=== PATIENT | male | born 1945 | race Caucasian/White ===

== ENCOUNTER 2018-05-02 15:27 | Emergency (ER) | payer MEDICARE, BC ==
[2018-05-02] MEDS: SODIUM CHLORIDE 0.9% FLUSH 10 ML SOL IV PRN (15:45)
[2018-05-02 15:46] VITALS: TEMP 98.5
[2018-05-02] MEDS ORDERED: ALTEPLASE, RECOMBINANT 50 MG PDS IV ONE (15:55)
[2018-05-02 15:58] LABS: CALCIUM 8.8 mg/dl (8.5-10.1); CREATININE 1.25 mg/dl (0.80-1.30)
[2018-05-02 16:01] LABS: INR 0.94 (0.86-1.12)
[2018-05-02] MEDS ORDERED: ASPIRIN 81 MG CHEWABLE CTB ONE (16:02)
[2018-05-02 16:03] LABS: HEMATOCRIT 42 % (39-53); HEMOGLOBIN 14.4 gm/dl (13.5-17.7); MEAN CORPUSCULAR HEMOGLOBIN 29.4 pg (27.0-32.0); MEAN CORPUSCULAR VOLUME 87 fL (80-100)
[2018-05-02] MEDS: ASPIRIN 81 MG CHEWABLE CTB PO ONE (16:03)
[2018-05-02 16:26] VITALS: BP 181/75; PULSE 99; RESP 26; O2SAT 91
[2018-05-02 16:30] LABS: BAND NEUTROPHILS % (MANUAL) 1 %; BASOPHILS % (MANUAL) 1 % (0-3); EOSINOPHILS % (MANUAL) 0 % (0-9); LYMPHOCYTES % (MANUAL) 28 % (10-50); MONOCYTES % (MANUAL) 5 % (0-12); NEUTROPHILS % (MANUAL) 65 % (37-80)
[2018-05-02 16:31] LABS: ANISOCYTOSIS SLIGHT; OVALOCYTES PRESENT; POIKILOCYTOSIS SLIGHT
== END 2018-05-02 16:09 | disposition short-term general hospital (02) | DRG 72 ==
LOC: ED 15:27
DX: I67.9 Cerebrovascular disease, unspecified (principal); R53.1 Weakness; R29.704 NIHSS score 4; I10 Essential (primary) hypertension; R40.2362 Coma scale, best motor response, obeys commands, at arrival to emergency department; R40.2142 Coma scale, eyes open, spontaneous, at arrival to emergency department; R40.2252 Coma scale, best verbal response, oriented, at arrival to emergency department; R29.702 NIHSS score 2
CPT/HCPCS: 70450; 80048; 85007; 85027; 85610; 85730; 93005; 99291; J2997

== ENCOUNTER 2018-05-29 11:43 | Emergency (ER) | payer MEDICARE, BC ==
[2018-05-29] MEDS ORDERED: SODIUM CHLORIDE 0.9% FLUSH 10 ML SOL IV PRN (11:56)
[2018-05-29 12:08] VITALS: TEMP 99.6
[2018-05-29 12:11] LABS: CALCIUM 8.5 mg/dl (8.5-10.1); CARBON DIOXIDE 28.8 mEq/L (21-32); CREATININE 0.96 mg/dl (0.80-1.30); POTASSIUM 4.1 mMol/L (3.5-5.1)
[2018-05-29 12:16] LABS: INR 0.99 (0.86-1.12)
[2018-05-29 12:22] LABS: BASOPHILS % (AUTO) 1 % (0-3); EOSINOPHILS % (AUTO) 1 % (0-9); HEMATOCRIT 40 % (39-53); HEMOGLOBIN 13.1 gm/dl (13.5-17.7); LYMPHOCYTES % (AUTO) 17.24 % (10-50); MEAN CORPUSCULAR HEMOGLOBIN 29.4 pg (27.0-32.0); MEAN CORPUSCULAR HGB CONC 32.9 gm/dl (32.0-36.0); MEAN CORPUSCULAR VOLUME 89 fL (80-100); MONOCYTES % (AUTO) 7.5 % (0-12); NEUTROPHILS % (AUTO) 73.7 % (37-80)
[2018-05-29 17:34] VITALS: BP 180/89; PULSE 72; RESP 22; O2SAT 99
== END 2018-05-29 17:52 | disposition short-term general hospital (02) | DRG 57 ==
LOC: ED 11:43
DX: G81.91 Hemiplegia, unspecified affecting right dominant side (principal); Z98.890 Other specified postprocedural states; Z51.89 Encounter for other specified aftercare; R53.1 Weakness
CPT/HCPCS: 70450; 70544; 70549; 70551; 80048; 82962; 85025; 85610; 85730; 93005; 99284; 99291; A9585

== ENCOUNTER 2018-06-19 11:32 | Inpatient (IN) | payer MEDICARE, BC ==
[2018-06-19] MEDS ORDERED: PHARMACOKINETICS 1 MISC PRN (14:05)
[2018-06-19] MEDS ORDERED: OXYCODONE HYDROCHLORIDE 5 MG TAB PO PRN (14:59)
[2018-06-19] MEDS ORDERED: QUETIAPINE FUMARATE 25 MG TAB PO PRN (14:59)
[2018-06-19] MEDS ORDERED: PIPERACILLIN/TAZOBACT 3.375 GM PDS IV ONE ×3 (16:28→21:19)
[2018-06-19] MEDS ORDERED: SODIUM CHLORIDE 0.9% 100 ML 100 ML IV ONE ×3 (16:29→21:19)
[2018-06-19] MEDS: PIPERACILLIN/TAZOBACT 3.375 GM 3.375 GM in SODIUM CHLORIDE 0.9% 100 ML 100 ML IV SCH ×2 (16:47→21:42)
[2018-06-19] MEDS: SODIUM CHLORIDE 0.9% FLUSH 10 ML SOL IV SCH ×2 (16:47→22:41)
[2018-06-19] MEDS: ACETAMINOPHEN 500 MG 500 MG TAB PO PRN (18:59)
[2018-06-19] MEDS ORDERED: SODIUM CHLORIDE 0.9% 250 ML 250 ML IV ONE (21:19)
[2018-06-19] MEDS ORDERED: VANCOMYCIN HYDROCHLORIDE 500 MG PDS IV ONE (21:19)
[2018-06-19] MEDS: LEVETIRACETAM 250 MG TAB PO SCH (21:49)
[2018-06-19] MEDS: MELATONIN 3 MG TAB PO SCH (21:50)
[2018-06-19] MEDS: GABAPENTIN 100 MG CAP PO SCH (21:50)
[2018-06-19] MEDS ORDERED: VANCOMYCIN HCL 500 MG PDS 1,250 MG in SODIUM CHLORIDE 0.9% 250 ML 250 ML IV ONE (22:00)
[2018-06-19] MEDS: VANCOMYCIN HCL 500 MG PDS 1,250 MG in SODIUM CHLORIDE 0.9% 250 ML 250 ML IV SCH (22:40)
[2018-06-20] MEDS: SODIUM CHLORIDE 0.9% FLUSH 10 ML SOL IV SCH ×3 (00:26→18:30)
[2018-06-20] MEDS: ACETAMINOPHEN 500 MG 500 MG TAB PO PRN (00:34)
[2018-06-20] MEDS ORDERED: PIPERACILLIN/TAZOBACT 3.375 GM PDS IV ONE ×4 (02:50→20:31)
[2018-06-20] MEDS ORDERED: SODIUM CHLORIDE 0.9% 100 ML 100 ML IV ONE ×4 (02:50→20:31)
[2018-06-20] MEDS: SODIUM CHLORIDE 0.9% FLUSH 10 ML SOL IV PRN ×4 (03:45→21:04)
[2018-06-20] MEDS: PIPERACILLIN/TAZOBACT 3.375 GM 3.375 GM in SODIUM CHLORIDE 0.9% 100 ML 100 ML IV SCH ×4 (03:45→21:02)
[2018-06-20] MEDS: TAMSULOSIN HYDROCHLORIDE 0.4 MG CAP PO SCH (08:52)
[2018-06-20] MEDS: ATORVASTATIN 10 MG TAB PO SCH (08:53)
[2018-06-20] MEDS: GABAPENTIN 100 MG CAP PO SCH ×3 (08:53→21:08)
[2018-06-20] MEDS: LISINOPRIL 5 MG TAB PO SCH (08:54)
[2018-06-20] MEDS ORDERED: MULTIVITAMIN2 1 EA TAB PO SCH (09:00)
[2018-06-20] MEDS: LEVETIRACETAM 250 MG TAB PO SCH ×2 (09:01→21:08)
[2018-06-20] MEDS ORDERED: VANCOMYCIN HYDROCHLORIDE 500 MG PDS IV ONE ×2 (09:27→21:14)
[2018-06-20] MEDS ORDERED: SODIUM CHLORIDE 0.9% 250 ML 250 ML IV ONE ×2 (09:27→21:15)
[2018-06-20] MEDS: VANCOMYCIN HCL 500 MG PDS 1,250 MG in SODIUM CHLORIDE 0.9% 250 ML 250 ML IV SCH ×2 (10:23→21:58)
[2018-06-20] MEDS: MELATONIN 3 MG TAB PO SCH (21:08)
[2018-06-20] MEDS: ASCORBIC ACID/COPPER/LUTEIN/ 1 CAP SGL PO SCH (21:09)
[2018-06-21] MEDS: SODIUM CHLORIDE 0.9% FLUSH 10 ML SOL IV SCH ×4 (00:35→23:30)
[2018-06-21] MEDS ORDERED: PIPERACILLIN/TAZOBACT 3.375 GM PDS IV ONE ×4 (03:19→21:25)
[2018-06-21] MEDS ORDERED: SODIUM CHLORIDE 0.9% 100 ML 100 ML IV ONE ×2 (03:19→07:55)
[2018-06-21] MEDS: PIPERACILLIN/TAZOBACT 3.375 GM 3.375 GM in SODIUM CHLORIDE 0.9% 100 ML 100 ML IV SCH ×4 (03:38→21:47)
[2018-06-21] MEDS: SODIUM CHLORIDE 0.9% FLUSH 10 ML SOL IV PRN ×3 (03:39→22:29)
[2018-06-21] MEDS: LISINOPRIL 5 MG TAB PO SCH (08:14)
[2018-06-21] MEDS: TAMSULOSIN HYDROCHLORIDE 0.4 MG CAP PO SCH (08:15)
[2018-06-21] MEDS: ATORVASTATIN 10 MG TAB PO SCH (08:15)
[2018-06-21] MEDS: GABAPENTIN 100 MG CAP PO SCH ×3 (08:15→21:58)
[2018-06-21] MEDS: ASCORBIC ACID/COPPER/LUTEIN/ 1 CAP SGL PO SCH ×2 (08:34→21:52)
[2018-06-21] MEDS: LEVETIRACETAM 250 MG TAB PO SCH ×2 (08:40→21:51)
[2018-06-21] MEDS: VANCOMYCIN HCL 500 MG PDS 1,250 MG in SODIUM CHLORIDE 0.9% 250 ML 250 ML IV SCH (10:46)
[2018-06-21] MEDS ORDERED: SODIUM CHLORIDE 0.9% 250 ML 250 ML IV ONE (21:14)
[2018-06-21] MEDS ORDERED: VANCOMYCIN HYDROCHLORIDE 500 MG PDS IV ONE (21:14)
[2018-06-21] MEDS: MELATONIN 3 MG TAB PO SCH (21:51)
[2018-06-21] MEDS: ACETAMINOPHEN 500 MG 500 MG TAB PO PRN (21:51)
[2018-06-21] MEDS: VANCOMYCIN HCL 500 MG PDS 1,000 MG in SODIUM CHLORIDE 0.9% 250 ML 250 ML IV SCH (22:28)
[2018-06-22] MEDS ORDERED: PIPERACILLIN/TAZOBACT 3.375 GM PDS IV ONE ×4 (02:30→19:50)
[2018-06-22] MEDS: PIPERACILLIN/TAZOBACT 3.375 GM 3.375 GM in SODIUM CHLORIDE 0.9% 100 ML 100 ML IV SCH ×4 (02:57→21:09)
[2018-06-22] MEDS: ACETAMINOPHEN 500 MG 500 MG TAB PO PRN ×2 (03:04→21:16)
[2018-06-22 07:16] LABS: CREATININE 1.21 mg/dl (0.80-1.30); CRP INFLAMMATORY 1.37 mg/dl (0.00-0.33)
[2018-06-22 07:20] LABS: BASOPHILS % (AUTO) 1 % (0-3); EOSINOPHILS % (AUTO) 6 % (0-9); HEMATOCRIT 34 % (39-53); HEMOGLOBIN 10.7 gm/dl (13.5-17.7); LYMPHOCYTES % (AUTO) 19.5 % (10-50); MEAN CORPUSCULAR HEMOGLOBIN 28.3 pg (27.0-32.0); MEAN CORPUSCULAR VOLUME 88 fL (80-100); MONOCYTES % (AUTO) 7.4 % (0-12); NEUTROPHILS % (AUTO) 65.8 % (37-80)
[2018-06-22] MEDS: SODIUM CHLORIDE 0.9% FLUSH 10 ML SOL IV SCH ×3 (09:43→23:40)
[2018-06-22] MEDS: ATORVASTATIN 10 MG TAB PO SCH (09:43)
[2018-06-22] MEDS: LISINOPRIL 5 MG TAB PO SCH (09:43)
[2018-06-22] MEDS: TAMSULOSIN HYDROCHLORIDE 0.4 MG CAP PO SCH (09:43)
[2018-06-22] MEDS: LEVETIRACETAM 250 MG TAB PO SCH ×2 (09:46→21:05)
[2018-06-22] MEDS: GABAPENTIN 100 MG CAP PO SCH ×3 (09:46→21:05)
[2018-06-22] MEDS: ASCORBIC ACID/COPPER/LUTEIN/ 1 CAP SGL PO SCH ×2 (09:47→21:05)
[2018-06-22] MEDS ORDERED: SODIUM CHLORIDE 0.9% 250 ML 250 ML IV ONE ×3 (10:43→19:50)
[2018-06-22] MEDS ORDERED: VANCOMYCIN HYDROCHLORIDE 500 MG PDS IV ONE ×2 (10:43→19:50)
[2018-06-22] MEDS: VANCOMYCIN HCL 500 MG PDS 1,000 MG in SODIUM CHLORIDE 0.9% 250 ML 250 ML IV SCH ×2 (10:56→21:50)
[2018-06-22] MEDS ORDERED: SODIUM CHLORIDE 0.9% 100 ML 100 ML IV ONE ×2 (15:42→19:50)
[2018-06-22] MEDS: MELATONIN 3 MG TAB PO SCH (21:05)
[2018-06-23] MEDS ORDERED: PIPERACILLIN/TAZOBACT 3.375 GM PDS IV ONE ×5 (01:07→23:57)
[2018-06-23] MEDS ORDERED: SODIUM CHLORIDE 0.9% 100 ML 100 ML IV ONE ×5 (01:08→23:57)
[2018-06-23] MEDS: PIPERACILLIN/TAZOBACT 3.375 GM 3.375 GM in SODIUM CHLORIDE 0.9% 100 ML 100 ML IV SCH ×4 (02:52→20:16)
[2018-06-23] MEDS: SODIUM CHLORIDE 0.9% FLUSH 10 ML SOL IV SCH ×6 (02:52→23:37)
[2018-06-23] MEDS: SODIUM CHLORIDE 0.9% FLUSH 10 ML SOL IV PRN ×2 (08:26→09:11)
[2018-06-23] MEDS: LEVETIRACETAM 250 MG TAB PO SCH ×2 (08:33→20:14)
[2018-06-23] MEDS: TAMSULOSIN HYDROCHLORIDE 0.4 MG CAP PO SCH (08:33)
[2018-06-23] MEDS: ATORVASTATIN 10 MG TAB PO SCH (08:34)
[2018-06-23] MEDS: ASCORBIC ACID/COPPER/LUTEIN/ 1 CAP SGL PO SCH ×2 (08:34→20:16)
[2018-06-23] MEDS: GABAPENTIN 100 MG CAP PO SCH ×3 (08:34→20:15)
[2018-06-23] MEDS: LISINOPRIL 5 MG TAB PO SCH (08:35)
[2018-06-23] MEDS: VANCOMYCIN HCL 500 MG PDS 1,000 MG in SODIUM CHLORIDE 0.9% 250 ML 250 ML IV SCH ×2 (10:01→22:18)
[2018-06-23] MEDS: HYDRALAZINE HYDROCHLORIDE 10 MG TAB PO PRN ×2 (11:54→19:29)
[2018-06-23] MEDS ORDERED: LISINOPRIL 5 MG TAB PO ONE (14:40)
[2018-06-23] MEDS ORDERED: VANCOMYCIN HYDROCHLORIDE 500 MG PDS IV ONE ×2 (18:40→18:41)
[2018-06-23] MEDS ORDERED: SODIUM CHLORIDE 0.9% 250 ML 250 ML IV ONE (18:43)
[2018-06-23] MEDS: MELATONIN 3 MG TAB PO SCH (20:15)
[2018-06-23] MEDS: ACETAMINOPHEN 500 MG 500 MG TAB PO PRN (20:17)
[2018-06-24] MEDS: SODIUM CHLORIDE 0.9% FLUSH 10 ML SOL IV SCH ×5 (03:20→23:15)
[2018-06-24] MEDS: PIPERACILLIN/TAZOBACT 3.375 GM 3.375 GM in SODIUM CHLORIDE 0.9% 100 ML 100 ML IV SCH ×4 (03:20→20:55)
[2018-06-24] MEDS ORDERED: PIPERACILLIN/TAZOBACT 3.375 GM PDS IV ONE ×3 (09:37→20:36)
[2018-06-24] MEDS ORDERED: SODIUM CHLORIDE 0.9% 100 ML 100 ML IV ONE ×3 (09:37→20:36)
[2018-06-24] MEDS: LISINOPRIL 20 MG TAB PO SCH (09:42)
[2018-06-24] MEDS: ATORVASTATIN 10 MG TAB PO SCH (09:42)
[2018-06-24] MEDS: TAMSULOSIN HYDROCHLORIDE 0.4 MG CAP PO SCH (09:42)
[2018-06-24] MEDS: GABAPENTIN 100 MG CAP PO SCH ×3 (09:42→20:43)
[2018-06-24] MEDS: ASCORBIC ACID/COPPER/LUTEIN/ 1 CAP SGL PO SCH ×2 (09:43→20:43)
[2018-06-24] MEDS: HYDRALAZINE HYDROCHLORIDE 10 MG TAB PO PRN ×2 (09:47→21:01)
[2018-06-24] MEDS: LEVETIRACETAM 250 MG TAB PO SCH ×2 (09:47→20:43)
[2018-06-24] MEDS ORDERED: VANCOMYCIN HYDROCHLORIDE 500 MG PDS IV ONE ×2 (10:35→21:23)
[2018-06-24] MEDS ORDERED: SODIUM CHLORIDE 0.9% 250 ML 250 ML IV ONE ×2 (10:35→21:23)
[2018-06-24] MEDS: VANCOMYCIN HCL 500 MG PDS 1,000 MG in SODIUM CHLORIDE 0.9% 250 ML 250 ML IV SCH ×2 (10:50→21:38)
[2018-06-24] MEDS: MELATONIN 3 MG TAB PO SCH (20:43)
[2018-06-24] MEDS: ACETAMINOPHEN 500 MG 500 MG TAB PO PRN (20:46)
[2018-06-25] MEDS: ACETAMINOPHEN 500 MG 500 MG TAB PO PRN ×2 (02:02→22:05)
[2018-06-25] MEDS ORDERED: PIPERACILLIN/TAZOBACT 3.375 GM PDS IV ONE ×4 (02:31→21:47)
[2018-06-25] MEDS ORDERED: SODIUM CHLORIDE 0.9% 100 ML 100 ML IV ONE ×4 (02:32→21:47)
[2018-06-25] MEDS: PIPERACILLIN/TAZOBACT 3.375 GM 3.375 GM in SODIUM CHLORIDE 0.9% 100 ML 100 ML IV SCH ×4 (03:04→21:58)
[2018-06-25] MEDS: SODIUM CHLORIDE 0.9% FLUSH 10 ML SOL IV SCH ×5 (03:05→16:36)
[2018-06-25] MEDS: LISINOPRIL 20 MG TAB PO SCH (08:52)
[2018-06-25] MEDS: ASCORBIC ACID/COPPER/LUTEIN/ 1 CAP SGL PO SCH ×2 (08:53→21:59)
[2018-06-25] MEDS: GABAPENTIN 100 MG CAP PO SCH ×3 (08:54→21:59)
[2018-06-25] MEDS: LEVETIRACETAM 250 MG TAB PO SCH ×2 (08:54→21:58)
[2018-06-25] MEDS: ATORVASTATIN 10 MG TAB PO SCH (08:55)
[2018-06-25] MEDS: TAMSULOSIN HYDROCHLORIDE 0.4 MG CAP PO SCH (08:55)
[2018-06-25] MEDS: HYDRALAZINE HYDROCHLORIDE 10 MG TAB PO SCH ×2 (09:00→21:59)
[2018-06-25 09:20] LABS: BASOPHILS % (AUTO) 1 % (0-3); EOSINOPHILS % (AUTO) 7 % (0-9); HEMATOCRIT 35 % (39-53); HEMOGLOBIN 11.4 gm/dl (13.5-17.7); LYMPHOCYTES % (AUTO) 13.2 % (10-50); MEAN CORPUSCULAR HEMOGLOBIN 28.7 pg (27.0-32.0); MEAN CORPUSCULAR HGB CONC 32.6 gm/dl (32.0-36.0); MEAN CORPUSCULAR VOLUME 88 fL (80-100); MONOCYTES % (AUTO) 5.7 % (0-12); NEUTROPHILS % (AUTO) 72.8 % (37-80)
[2018-06-25 09:31] LABS: CALCIUM 8.6 mg/dl (8.5-10.1); CARBON DIOXIDE 27.4 mEq/L (21-32); CREATININE 1.25 mg/dl (0.80-1.30); POTASSIUM 4.1 mMol/L (3.5-5.1)
[2018-06-25] MEDS ORDERED: VANCOMYCIN HYDROCHLORIDE 500 MG PDS IV ONE ×2 (09:55→22:24)
[2018-06-25] MEDS ORDERED: SODIUM CHLORIDE 0.9% 250 ML 250 ML IV ONE ×2 (09:55→22:24)
[2018-06-25] MEDS: VANCOMYCIN HCL 500 MG PDS 1,000 MG in SODIUM CHLORIDE 0.9% 250 ML 250 ML IV SCH ×2 (09:58→22:37)
[2018-06-25] MEDS: HYDRALAZINE HYDROCHLORIDE 10 MG TAB PO PRN (11:12)
[2018-06-25] MEDS: MELATONIN 3 MG TAB PO SCH (21:58)
[2018-06-26] MEDS: SODIUM CHLORIDE 0.9% FLUSH 10 ML SOL IV SCH ×3 (00:30→15:00)
[2018-06-26] MEDS ORDERED: PIPERACILLIN/TAZOBACT 3.375 GM PDS IV ONE ×4 (02:42→21:45)
[2018-06-26] MEDS ORDERED: SODIUM CHLORIDE 0.9% 100 ML 100 ML IV ONE ×4 (02:42→21:45)
[2018-06-26] MEDS: PIPERACILLIN/TAZOBACT 3.375 GM 3.375 GM in SODIUM CHLORIDE 0.9% 100 ML 100 ML IV SCH ×4 (03:29→22:05)
[2018-06-26] MEDS: HYDRALAZINE HYDROCHLORIDE 10 MG TAB PO PRN ×2 (04:16→15:53)
[2018-06-26] MEDS: GABAPENTIN 100 MG CAP PO SCH ×3 (08:38→22:37)
[2018-06-26] MEDS: TAMSULOSIN HYDROCHLORIDE 0.4 MG CAP PO SCH (08:38)
[2018-06-26] MEDS: LEVETIRACETAM 250 MG TAB PO SCH ×2 (08:38→22:27)
[2018-06-26] MEDS: LISINOPRIL 20 MG TAB PO SCH (08:39)
[2018-06-26] MEDS: ASCORBIC ACID/COPPER/LUTEIN/ 1 CAP SGL PO SCH ×2 (08:39→22:38)
[2018-06-26] MEDS: ATORVASTATIN 10 MG TAB PO SCH (08:39)
[2018-06-26] MEDS ORDERED: SODIUM CHLORIDE 0.9% 250 ML 250 ML IV ONE ×2 (09:10→21:46)
[2018-06-26] MEDS ORDERED: VANCOMYCIN HYDROCHLORIDE 500 MG PDS IV ONE ×2 (09:10→21:46)
[2018-06-26] MEDS: SODIUM CHLORIDE 0.9% FLUSH 10 ML SOL IV PRN ×3 (09:21→15:38)
[2018-06-26] MEDS: VANCOMYCIN HCL 500 MG PDS 1,000 MG in SODIUM CHLORIDE 0.9% 250 ML 250 ML IV SCH ×2 (09:59→23:07)
[2018-06-26] MEDS: HYDRALAZINE HYDROCHLORIDE 10 MG TAB PO SCH ×2 (10:02→22:29)
[2018-06-26] MEDS ORDERED: HYDROCHLOROTHIAZIDE 25 MG TAB PO ONE (16:06)
[2018-06-26] MEDS: MELATONIN 3 MG TAB PO SCH (22:33)
[2018-06-26] MEDS: ACETAMINOPHEN 500 MG 500 MG TAB PO PRN (22:41)
[2018-06-27] MEDS ORDERED: PIPERACILLIN/TAZOBACT 3.375 GM PDS IV ONE ×4 (03:13→20:51)
[2018-06-27] MEDS ORDERED: SODIUM CHLORIDE 0.9% 100 ML 100 ML IV ONE ×4 (03:14→20:51)
[2018-06-27] MEDS: PIPERACILLIN/TAZOBACT 3.375 GM 3.375 GM in SODIUM CHLORIDE 0.9% 100 ML 100 ML IV SCH ×4 (03:44→20:59)
[2018-06-27] MEDS: SODIUM CHLORIDE 0.9% FLUSH 10 ML SOL IV SCH ×6 (03:53→23:54)
[2018-06-27] MEDS: LEVETIRACETAM 250 MG TAB PO SCH ×2 (08:47→20:59)
[2018-06-27] MEDS: GABAPENTIN 100 MG CAP PO SCH ×3 (08:48→21:01)
[2018-06-27] MEDS: TAMSULOSIN HYDROCHLORIDE 0.4 MG CAP PO SCH (08:49)
[2018-06-27] MEDS: ATORVASTATIN 10 MG TAB PO SCH (08:49)
[2018-06-27] MEDS: LISINOPRIL 20 MG TAB PO SCH (08:50)
[2018-06-27] MEDS: ASCORBIC ACID/COPPER/LUTEIN/ 1 CAP SGL PO SCH ×2 (08:50→21:02)
[2018-06-27] MEDS: HYDRALAZINE HYDROCHLORIDE 10 MG TAB PO SCH ×2 (08:51→21:04)
[2018-06-27] MEDS: HYDROCHLOROTHIAZIDE 25 MG TAB PO SCH (08:56)
[2018-06-27] MEDS ORDERED: VANCOMYCIN HYDROCHLORIDE 500 MG PDS IV ONE ×3 (10:20→22:15)
[2018-06-27] MEDS ORDERED: SODIUM CHLORIDE 0.9% 250 ML 250 ML IV ONE ×4 (10:20→22:15)
[2018-06-27] MEDS: VANCOMYCIN HCL 500 MG PDS 1,000 MG in SODIUM CHLORIDE 0.9% 250 ML 250 ML IV SCH ×2 (10:21→22:20)
[2018-06-27] MEDS: SODIUM CHLORIDE 0.9% FLUSH 10 ML SOL IV PRN (15:22)
[2018-06-27] MEDS: MELATONIN 3 MG TAB PO SCH (21:00)
[2018-06-27] MEDS: ACETAMINOPHEN 500 MG 500 MG TAB PO PRN (21:10)
[2018-06-28] MEDS ORDERED: PIPERACILLIN/TAZOBACT 3.375 GM PDS IV ONE ×2 (02:45→20:20)
[2018-06-28] MEDS ORDERED: SODIUM CHLORIDE 0.9% 100 ML 100 ML IV ONE ×2 (02:46→20:20)
[2018-06-28] MEDS: PIPERACILLIN/TAZOBACT 3.375 GM 3.375 GM in SODIUM CHLORIDE 0.9% 100 ML 100 ML IV SCH ×4 (03:20→20:58)
[2018-06-28] MEDS: SODIUM CHLORIDE 0.9% FLUSH 10 ML SOL IV SCH ×3 (08:43→23:34)
[2018-06-28] MEDS: GABAPENTIN 100 MG CAP PO SCH ×3 (08:44→20:44)
[2018-06-28] MEDS: LEVETIRACETAM 250 MG TAB PO SCH ×2 (08:44→20:43)
[2018-06-28] MEDS: ASCORBIC ACID/COPPER/LUTEIN/ 1 CAP SGL PO SCH ×2 (08:44→20:46)
[2018-06-28] MEDS: ATORVASTATIN 10 MG TAB PO SCH (08:44)
[2018-06-28] MEDS: TAMSULOSIN HYDROCHLORIDE 0.4 MG CAP PO SCH (08:44)
[2018-06-28] MEDS: HYDRALAZINE HYDROCHLORIDE 10 MG TAB PO SCH ×2 (08:45→20:43)
[2018-06-28] MEDS: LISINOPRIL 20 MG TAB PO SCH (08:45)
[2018-06-28] MEDS: HYDROCHLOROTHIAZIDE 25 MG TAB PO SCH (08:49)
[2018-06-28] MEDS ORDERED: VANCOMYCIN HYDROCHLORIDE 500 MG PDS IV ONE ×2 (09:50→21:35)
[2018-06-28] MEDS ORDERED: SODIUM CHLORIDE 0.9% 250 ML 250 ML IV ONE ×2 (09:51→21:35)
[2018-06-28] MEDS: VANCOMYCIN HCL 500 MG PDS 1,000 MG in SODIUM CHLORIDE 0.9% 250 ML 250 ML IV SCH ×2 (10:04→21:48)
[2018-06-28] MEDS: SODIUM CHLORIDE 0.9% FLUSH 10 ML SOL IV PRN ×3 (11:37→15:24)
[2018-06-28 20:41] VITALS: RESP 16
[2018-06-28] MEDS: MELATONIN 3 MG TAB PO SCH (20:47)
[2018-06-28] MEDS: ACETAMINOPHEN 500 MG 500 MG TAB PO PRN (20:48)
[2018-06-29] MEDS ORDERED: SODIUM CHLORIDE 0.9% 100 ML 100 ML IV ONE (01:33)
[2018-06-29] MEDS ORDERED: PIPERACILLIN/TAZOBACT 3.375 GM PDS IV ONE (01:33)
[2018-06-29] MEDS: PIPERACILLIN/TAZOBACT 3.375 GM 3.375 GM in SODIUM CHLORIDE 0.9% 100 ML 100 ML IV SCH ×3 (02:55→15:36)
[2018-06-29] MEDS: SODIUM CHLORIDE 0.9% FLUSH 10 ML SOL IV PRN (02:55)
[2018-06-29 07:20] LABS: BASOPHILS % (AUTO) 1 % (0-3); EOSINOPHILS % (AUTO) 6 % (0-9); HEMATOCRIT 37 % (39-53); HEMOGLOBIN 12.3 gm/dl (13.5-17.7); LYMPHOCYTES % (AUTO) 18.1 % (10-50); MEAN CORPUSCULAR HEMOGLOBIN 28.6 pg (27.0-32.0); MEAN CORPUSCULAR HGB CONC 32.8 gm/dl (32.0-36.0); MEAN CORPUSCULAR VOLUME 87 fL (80-100); MONOCYTES % (AUTO) 7.3 % (0-12); NEUTROPHILS % (AUTO) 67.3 % (37-80)
[2018-06-29 07:24] LABS: CREATININE 1.32 mg/dl (0.80-1.30); CRP INFLAMMATORY 0.87 mg/dl (0.00-0.33)
[2018-06-29] MEDS: LISINOPRIL 20 MG TAB PO SCH ×2 (07:39→08:02)
[2018-06-29] MEDS: LEVETIRACETAM 250 MG TAB PO SCH ×2 (07:39→08:02)
[2018-06-29] MEDS: HYDRALAZINE HYDROCHLORIDE 10 MG TAB PO SCH ×2 (07:41→08:01)
[2018-06-29] MEDS: TAMSULOSIN HYDROCHLORIDE 0.4 MG CAP PO SCH ×2 (07:42→08:02)
[2018-06-29] MEDS: ATORVASTATIN 10 MG TAB PO SCH ×2 (07:42→08:02)
[2018-06-29] MEDS: SODIUM CHLORIDE 0.9% FLUSH 10 ML SOL IV SCH ×2 (07:44→15:36)
[2018-06-29] MEDS: GABAPENTIN 100 MG CAP PO SCH ×2 (07:45→15:38)
[2018-06-29 07:49] VITALS: BP 156/76; PULSE 86; TEMP 98.9; O2SAT 93
[2018-06-29] MEDS: HYDROCHLOROTHIAZIDE 25 MG TAB PO SCH (07:59)
[2018-06-29] MEDS: ASCORBIC ACID/COPPER/LUTEIN/ 1 CAP SGL PO SCH (08:00)
[2018-06-29] MEDS: VANCOMYCIN HCL 500 MG PDS 1,000 MG in SODIUM CHLORIDE 0.9% 250 ML 250 ML IV SCH (09:25)
== END 2018-06-29 16:40 | disposition home or self-care (01) | DRG 945 ==
LOC: ACUTE CARE 15:04
PROVIDERS: ADMIT Family Medicine; ATTEND Family Medicine
PROC: F01L0FZ Muscle Performance Assessment of Musculoskeletal System - Lower Back / Lower Extremity using Assistive, Adaptive, Supportive or Protective Equipment (ICD-10-PCS; principal; 2018-06-19)
PROC: F0134ZZ Motor Function Assessment of Neurological System - Whole Body (ICD-10-PCS; 2018-06-19)
PROC: F01ZBFZ Bed Mobility Assessment using Assistive, Adaptive, Supportive or Protective Equipment (ICD-10-PCS; 2018-06-19)
PROC: F02Z0ZZ Bathing/Showering Assessment (ICD-10-PCS; 2018-06-22)
PROC: F02Z3ZZ Grooming/Personal Hygiene Assessment (ICD-10-PCS; 2018-06-22)
DX: Z98.890 Other specified postprocedural states (principal); G04.90 Encephalitis and encephalomyelitis, unspecified; G81.91 Hemiplegia, unspecified affecting right dominant side; I10 Essential (primary) hypertension; E11.9 Type 2 diabetes mellitus without complications; E78.5 Hyperlipidemia, unspecified; Z86.011 Personal history of benign neoplasm of the brain
CPT/HCPCS: 36415; 80048; 82565; 84450; 84520; 85025; J2543; J3370; A9270-GY

== ENCOUNTER 2018-09-27 06:52 | Emergency (ER) | payer MEDICARE, BC ==
[2018-09-27 07:11] VITALS: RESP 21; TEMP 97
[2018-09-27 08:07] LABS: BASOPHILS % (AUTO) 1 % (0-3); EOSINOPHILS % (AUTO) 2 % (0-9); HEMATOCRIT 41 % (39-53); HEMOGLOBIN 13.1 gm/dl (13.5-17.7); LYMPHOCYTES % (AUTO) 19.6 % (10-50); MEAN CORPUSCULAR HEMOGLOBIN 27.9 pg (27.0-32.0); MEAN CORPUSCULAR VOLUME 87 fL (80-100); MONOCYTES % (AUTO) 6.5 % (0-12); NEUTROPHILS % (AUTO) 71.4 % (37-80)
[2018-09-27 08:21] LABS: ALBUMIN 3.8 gm/dl (3.4-5.0); BILIRUBIN,TOTAL 0.9 mg/dl (0.2-1.0); CALCIUM 8.6 mg/dl (8.5-10.1); CARBON DIOXIDE 30.1 mEq/L (21-32); CREATININE 1.18 mg/dl (0.80-1.30); POTASSIUM 4.8 mMol/L (3.5-5.1); TOTAL PROTEIN 6.9 gm/dl (6.4-8.2)
[2018-09-27 10:07] VITALS: BP 153/75; PULSE 72; O2SAT 92
== END 2018-09-27 09:17 | disposition home or self-care (01) | DRG 101 ==
LOC: ED 06:52
DX: G40.909 Epilepsy, unspecified, not intractable, without status epilepticus (principal); R06.02 Shortness of breath
CPT/HCPCS: 36415; 80053; 85025; 99282; 99283

== ENCOUNTER 2018-12-25 04:32 | Emergency (ER) | payer MEDICARE, BC ==
[2018-12-25] MEDS ORDERED: SODIUM CHLORIDE 0.9% 500 ML 500 ML IV SCH (04:45)
[2018-12-25 04:51] VITALS: TEMP 97
[2018-12-25 05:01] LABS: BASOPHILS % (AUTO) 1 % (0-3); EOSINOPHILS % (AUTO) 3 % (0-9); HEMATOCRIT 37 % (39-53); HEMOGLOBIN 12.2 gm/dl (13.5-17.7); LYMPHOCYTES % (AUTO) 26.3 % (10-50); MEAN CORPUSCULAR HEMOGLOBIN 29.1 pg (27.0-32.0); MEAN CORPUSCULAR HGB CONC 32.9 gm/dl (32.0-36.0); MEAN CORPUSCULAR VOLUME 89 fL (80-100); NEUTROPHILS % (AUTO) 63.1 % (37-80)
[2018-12-25 05:16] LABS: ALBUMIN 3.9 gm/dl (3.4-5.0); BILIRUBIN,TOTAL 0.6 mg/dl (0.2-1.0); CALCIUM 8.3 mg/dl (8.5-10.1); CARBON DIOXIDE 29.2 mEq/L (21-32); CREATININE 1.33 mg/dl (0.80-1.30); POTASSIUM 4.6 mMol/L (3.5-5.1); TOTAL PROTEIN 6.8 gm/dl (6.4-8.2)
[2018-12-25 06:40] VITALS: BP 159/74; PULSE 74; RESP 20; O2SAT 97
== END 2018-12-25 06:23 | disposition home or self-care (01) | DRG 156 ==
LOC: ED 04:32
DX: G47.33 Obstructive sleep apnea (adult) (pediatric) (principal); R56.9 Unspecified convulsions; R40.2362 Coma scale, best motor response, obeys commands, at arrival to emergency department; R40.2142 Coma scale, eyes open, spontaneous, at arrival to emergency department; R40.2252 Coma scale, best verbal response, oriented, at arrival to emergency department
CPT/HCPCS: 80053; 85025; 96365; 99282; 99283

== ENCOUNTER 2019-06-29 07:22 | Day surgery (SDC) | payer MEDICARE, BC ==
[2019-06-29] MEDS ORDERED: BUPIVACAINE HCL 0.25% MPF 30 ML SOL INFIL ONE (07:40)
[2019-06-29] MEDS: DEXAMETHASONE SOD PHOS PF 10 MG/ML SOL IJ ONE ×3 (08:13→08:17)
[2019-06-29 08:27] VITALS: RESP 18; TEMP 97.4; O2SAT 94
[2019-06-29 08:46] VITALS: BP 163/83; PULSE 78
== END 2019-06-29 08:46 | disposition home or self-care (01) | DRG 552 ==
LOC: SURG 07:22
PROVIDERS: ATTEND Nurse Anesthetist, Certified Registered
DX: M47.896 Other spondylosis, lumbar region (principal)
CPT/HCPCS: J1100